=== PATIENT | female | born 1960 | race Two or more races ===

== ENCOUNTER 2018-07-16 05:52 | Emergency (ER) | payer OTHER ==
[2018-07-16] MEDS ORDERED: KETOROLAC TROMETHAMINE 30 MG/1 ML VIAL IM ONE (06:19)
--- NOTE | 2018-07-16 06:30 | PDOC ---
Attending Attestation - Resident Resident Name: VeritoWendie - ED Attending Attestation I have performed the following: I have examined & evaluated the patient, The case was reviewed & discussed with the resident, I agree w/resident's findings & plan, Exceptions are as noted - HPI HPI: 07/16/18 06:25 58 F with h/o sciatica presenting with acute on chronic exacerbation of her lower back pain. Pt reports pain radiating from her lower back down to her R leg. Denies any saddle anesthesia. Denies incontinence. Denies weakness in her legs. Is still ambulatory without assistance. Denies any recent falls. Denies fevers. Denies abdominal pain. Denies leg swelling. No recent travel/ immobilization. Not on exogenous hormones. Denies CP/SOB. - Physicial Exam PE: 07/16/18 06:28 "GENERAL: Awake, alert, and fully oriented, in no acute distress. HEAD: No signs of trauma EYES: PERRLA, EOMI, sclera anicteric, conjunctiva clear ENT: Auricles normal inspection, hearing grossly normal, nares patent, oropharynx clear without exudates. Moist mucosa NECK: Nontender, no stepoffs, Normal ROM, supple, no lymphadenopathy, JVD, or masses LUNGS: Breath sounds equal, clear to auscultation bilaterally. No wheezes, and no crackles HEART: Regular rate and rhythm, normal S1 and S2, no murmurs, rubs or gallops ABDOMEN: Soft, nontender, normoactive bowel sounds. No guarding, no rebound. No masses EXTREMITIES: Normal range of motion, no edema. No clubbing or cyanosis. No cords, erythema, or tenderness NEUROLOGICAL: Cranial nerves II through XII intact. 5/5 strength and sensation in all extremities, Normal speech, normal gait, normal cerebellar function SKIN: Warm, Dry, normal turgor, no rashes or lesions noted. - Medical Decision Making 07/16/18 06:28 58 F with Lower back pain radiating to R leg, consistent with h/o sciatica. Pt with no neuro deficits to suggest cauda equina or cord compression. Pt with no asymmetric swelling to suggest DVT. No DVT risk factors. Equal pulses bilaterally, making vascular pathology unlikely. - Toradol - F/u ortho Pt is well appearing, with normal vitals. Clinically stable for DC at this time. I discussed the physical exam findings, ancillary test results and final diagnoses with the patient. I answered all of the patient's questions. The patient was satisfied with the care received and felt comfortable with the discharge plan and treatment plan. The patient agrees to follow up with the primary care physician within 24-72 hours.
[2018-07-16 06:32] VITALS: BP 170/99; PULSE 92; TEMP 99; BMI 32.5
--- NOTE | 2018-07-16 06:34 | PDOC ---
History of Present Illness - General Chief Complaint: Pain, Acute Stated Complaint: PAIN,RT LEG Time Seen by Provider: 07/16/18 06:04 History Source: Patient, Family (son) Exam Limitations: Language Barrier - History of Present Illness Initial Comments: 07/16/18 06:46 *pt speaks Upper Sorbian. Son helped to translate Pt is a 58yo f with PMH of sciatica, htn presenting to ED with worsening back pain for the past 15 days. Pt says that this pain feels like her sciatica. She has been seeing physical therapy but since it stopped the pain has returned. She had been taking diclofenac for the pain as needed which has helped but she ran out 2 days ago. She is denying weakness, tingling, loss of bowel/bladder, pain in the L leg. Pain is worse when she tries to stand up from sitting down. She has not taken anything for the pain these past couple of days. No injuries or falls. No surgeries in the back. PCP: Renetta PMH: sciatica, htn Meds: enalapril PSH: none Allergies: PCN Social: denies Past History - Past Medical History Allergies/Adverse Reactions: Allergies Allergy/AdvReac Type Severity Reaction Status Date / Time Penicillins Allergy Verified 07/16/18 06:33 Home Medications: Ambulatory Orders Baclofen 10 mg PO TID #15 tablet 07/16/18 Naproxen 500 mg PO BID #14 tablet 07/16/18 Review of Systems - Review of Systems Able to Perform ROS?: Yes Constitutional: No: Chills, Fever, Weakness HEENTM: No: Recent change in vision Respiratory: No: Cough, Shortness of Breath Cardiac (ROS): No: Chest Pain, Lightheadedness, Palpitations, Syncope ABD/GI: No: Constipated, Diarrhea, Nausea, Vomiting, Abdominal cramping : No: Dysuria, Hematuria, Incontinence Musculoskeletal: Yes: Back Pain. No: Joint Pain, Muscle Pain, Muscle Weakness, Neck Pain Neurological: No: Headache, Numbness, Paresthesia, Tingling, Tremors, Weakness, Unsteady Gait, Ataxia, Dizziness *Physical Exam - Physical Exam Comments: 07/16/18 06:51 Pt sitting on bed with son at bedside General Appearance: Yes: Nourished, Appropriately Dressed, Mild Distress, Obese HEENT: positive: EOMI, APRIL, Normal Voice, Pharynx Normal, Hearing Grossly Normal. negative: Pale Conjunctivae, Scleral Icterus (R), Scleral Icterus (L) Neck: positive: Trachea midline, Supple. negative: Lymphadenopathy (R), Lymphadenopathy (L) Respiratory/Chest: positive: Lungs Clear, Normal Breath Sounds. negative: Crackles, Rales, Rhonchi, Stridor, Wheezing Cardiovascular: positive: Regular Rhythm, Regular Rate, S1, S2. negative: Edema , JVD, Murmur Vascular Pulses: Carotid (R): 2+, Carotid (L): 2+, Dorsalis-Pedis (R): 2+, Doralis-Pedis (L): 2+ Gastrointestinal/Abdominal: positive: Normal Bowel Sounds, Soft. negative: Distended, Guarding, Rebound, Tenderness Musculoskeletal: positive: Decreased Range of Motion (in R leg), Other (+SLR in R leg). negative: CVA Tenderness, Muscle Spasm, Vertebral Tenderness Extremity: positive: Normal Capillary Refill, Pelvis Stable. negative: Swelling , Calf Tenderness Integumentary: positive: Normal Color, Dry, Warm. negative: Swelling Neurologic: positive: heel lift gouger II-XII NML intact, Fully Oriented, Alert, Normal Mood/ Affect, Normal Response, Motor Strength 5/5, Sensory Deficit (R leg compared to L leg), Finger to Nose Deep Tendon Reflexes: Ankle (L): 2+, Ankle (R): 2+, Knee (L): 2+, Knee (R): 2+ Medical Decision Making - Medical Decision Making 07/16/18 06:53 58yo f with PMH of htn, sciatica presenting with increasing back pain which feels like sciatica. Vitals: wnl, hypertensive w/o signs of emergency/urgency PE: + SLR in R leg, less sensation in R leg compared to L leg DDx: cauda equina, hematoma, abscess, sciatica Low suspcion for cauda equina given lack of saddle anesthesia, full ROM, able to ambulate. Low suspicion for hematoma and abscess given lack of fever, no recent trauma or surgeries. Higher suspicion for sciatica. Will give pt toradol and reevaluate 07/16/18 07:00 Pt reports feeling better. Agrees with plan to be dc home. PT was told rx for baclofen and naproxyn sent to pharmacy. advised to see pcp. given referral to neuro and ortho. PT understood return precautions. *DC/Admit/Observation/Transfer Diagnosis at time of Disposition: Sciatica Qualifiers: Laterality: right Qualified Code(s): M54.31 - Sciatica, right side - Discharge Dispostion Disposition: HOME Condition at time of disposition: Good Decision to Admit order: No - Prescriptions Prescriptions: Baclofen 10 mg PO TID #15 tablet Naproxen 500 mg PO BID #14 tablet - Referrals Referrals: Evert Jackson [Primary Care Provider] - Yosef Tripp MD [Staff Physician] - Joshua Lopez MD [Staff Physician] - - Patient Instructions Printed Discharge Instructions: DI for Sciatica Additional Instructions: Te vieron aqu hoy por tu dolor de espalda. Es muy probable que la citica. Le recomiendo que consulte a un neurlogo para el tratamiento del dolor causado por la citica. El Dr. Paris est afiliado a [facility]. Puedes loryamarlo al Tambin sugiero dakota a un mdico ortopdico: Dr. Lopez Se le laura dado recetas de naproxeno y ciclobenzaprina. Por favor tome ioana se indica. Est en [facility]. Regrese a la sofía de emergencias si: el dolor empeora, no puede senior care assistant la pierna , pierde la sensibilidad en la pierna, no puede controlar la vejiga o los intestinos o si se presenta algn sntoma nuevo. Suzette You were seen here today for your back pain. It is most likely sciatica. I highly recommend you see a neurologist for further management of pain caused by sciatica. Dr. Paris is affiliated with this hospital. You can call him at I also suggest seeing an orthopedic doctor: Dr. Lopez You have been given prescriptions for naproxen and cyclobenzaprine. Please take as directed. It is at [facility]. Please come back to the emergency room if: pain gets worse, you are unable to move your leg, you lose sensation in your leg, you are unable to control your bladder or bowels or if any new concerning symptom develops. Thank you Print Language: ANGOLAN - Post Discharge Activity
[2018-07-16] MEDS ORDERED: KETOROLAC TROMETHAMINE 30 MG/1 ML VIAL ONE (06:40)
== END 2018-07-16 07:58 | disposition home or self-care (01) ==
LOC: JER 05:52
PROC: 3E0233Z Introduction of Anti-inflammatory into Muscle, Percutaneous Approach (ICD-10-PCS; principal; 2018-07-16)
DX: M54.31 Sciatica, right side (principal)
CPT/HCPCS: 99283-25

== ENCOUNTER 2018-07-19 13:24 | Emergency (ER) | payer OTHER ==
[2018-07-19 13:33] VITALS: TEMP 97; BMI 32.5
--- NOTE | 2018-07-19 14:17 | PDOC ---
History of Present Illness - General Chief Complaint: Pain Stated Complaint: LEG PAIN Time Seen by Provider: 07/19/18 14:15 History Source: Patient Exam Limitations: No Limitations - History of Present Illness Initial Comments: 07/19/18 14:16 CHIEF COMPLAINT: Lower back pain HISTORY OF PRESENT ILLNESS: 58-year-old woman presents emergency Department with right lower back pain shooting down her right leg. She denies any trauma. Patient was seen and evaluated in this emergency Department diagnoses sciatica and is been taking Naprosyn and baclofen which help relieve the pain but the pain returned after approximately 2 hours. Patient denies any urinary retention , incontinence of bladder or bowel, saddle anesthesia, foot drop, IV drug use or history of cancer. REVIEW OF SYSTEMS: GENERAL: Afebrile, denies any weakness RESPIRATORY: No cough, wheezing, or hemoptysis. CARDIAC: No chest pain or shortness of breath MUSCULOSKELETAL: Pain to right lower back. SKIN : No erythema, no bruising, no deformity. GI/: Denies any abdominal pain, no urinary difficulty, incontinence or urinary retention. RECTAL: Denies any difficulty this A.m. NEUROLOGICAL: Denies any numbness or tingling. No neurosensory deficits. PHYSICAL EXAM: GENERAL: The patient is awake, alert, and fully oriented, in no acute distress. RESPIRATORY: Lungs clear bilaterally, no rhonchi wheezes or crackles CARDIAC: S1-S2 audible, no murmur rub or gallop MUSCULOSKELETAL: Pain to right lower back. No tingling or sensory deficit. Less than 2 second cap refill, +2 pedal pulses. GI/: Abdomen soft, nontender, nondistended. No rebound tenderness. No masses palpable. MUSCULOSKELETAL: No spinal point tenderness. Normal reflexive and no deficits to sensation or strength. Point tenderness over the right ischium. RECTAL: Deferred patient with no neurological findings SKIN: Warm, Dry, normal turgor, no erythema, no edema no bruising. Past History - Past Medical History Allergies/Adverse Reactions: Allergies Allergy/AdvReac Type Severity Reaction Status Date / Time Penicillins Allergy Verified 07/19/18 13:31 Home Medications: Ambulatory Orders Baclofen 10 mg PO TID #15 tablet 07/16/18 Naproxen 500 mg PO BID #14 tablet 07/16/18 Enalapril Maleate 5 mg PO DAILY 07/19/18 Methocarbamol [Robaxin -] 1,500 mg PO Q8H PRN #30 tablet 07/19/18 COPD: No HTN: Yes - Suicide/Smoking/Psychosocial Hx Smoking History: Never smoked Have you smoked in the past 12 months: No Hx Alcohol Use: No Drug/Substance Use Hx: No *Physical Exam - Vital Signs Last Vital Signs Temp Pulse Resp BP Pulse Ox 97 F L 103 H 20 179/113 H 99 07/19/18 13:25 07/19/18 13:25 07/19/18 13:25 07/19/18 13:25 07/19/18 13:25 Medical Decision Making - Medical Decision Making 07/19/18 14:27 A/P: 58-year-old woman with lower back pain with right-sided sciatica Ambulatory with limp Pedal pushes even bilaterally 2+ DP and PT pulses bilaterally Point tenderness to right ischium with pain shooting down posterior right lower extremity Patient with elevated blood pressure upon arrival. Patient switched from atenolol to enalapril 7 days ago. ? Blood pressure medication titration needed or pain Patient is a 30 taking Naprosyn 500 mg this morning and baclofen 10 mg. I will add Valium 5 mg and Robaxin 1 g Reassess *DC/Admit/Observation/Transfer Diagnosis at time of Disposition: Sciatica Qualifiers: Laterality: right Qualified Code(s): M54.31 - Sciatica, right side - Discharge Dispostion Disposition: HOME Condition at time of disposition: Stable Decision to Admit order: No - Prescriptions Prescriptions: Methocarbamol [Robaxin -] 1,500 mg PO Q8H PRN #30 tablet PRN Reason: Back Pain - Referrals Referrals: Evert Jackson [Primary Care Provider] - - Patient Instructions Additional Instructions: Rest, no heavy lifting or exercise until pain is resolved Hot soaks to neck and low back as often as possible/hot showers or Jacuzzis No massage or therapy until spasm is gone Continue naproxen as prescribed as needed for pain and swelling Robaxin 1500mg every 8 hours as needed for spasm If not significant improvement within 24 hours with medication and rest regime, followup with private physician for change in medications and /or therapy. - Post Discharge Activity
[2018-07-19] MEDS ORDERED: METHOCARBAMOL 500 MG TABLET PO ONE (14:23)
[2018-07-19] MEDS ORDERED: diazePAM 5 MG TABLET PO ONE (14:23)
[2018-07-19] MEDS ORDERED: diazePAM 5 MG TABLET ONE (14:34)
[2018-07-19] MEDS ORDERED: METHOCARBAMOL 500 MG TABLET ONE (14:34)
[2018-07-19 15:30] VITALS: BP 139/99; PULSE 74
== END 2018-07-19 15:48 | disposition home or self-care (01) ==
LOC: JERFT 13:24 → JER 13:24 → JERFT 15:48
DX: M54.41 Lumbago with sciatica, right side (principal)
CPT/HCPCS: 99281-25

== ENCOUNTER 2022-03-11 09:23 | Emergency (ER) | payer OTHER ==
[2022-03-11 09:43] VITALS: BMI 29.0
[2022-03-11] MEDS ORDERED: CARVEDILOL 25 MG TABLET (FP) PO ONE (10:22)
[2022-03-11] MEDS ORDERED: CARVEDILOL 25 MG TABLET (FP) ONE (11:07)
[2022-03-11 11:15] VITALS: BP 152/84; PULSE 69; TEMP 98.6
[2022-03-11 12:09] LABS: BASO % 0.3 % (0-2.0); EOS % 1.7 % (0-4.5); HEMATOCRIT 36.6 % (32.4-45.2); HEMOGLOBIN 12.7 GM/dL (10.7-15.3); LYMPH % 37.4 % (8-40); MCH 31.2 pg (25.7-33.7); MCHC 34.7 g/dl (32.0-36.0); MEAN CELL VOLUME 89.8 fl (80-96); MEAN PLT VOLUME 9.6 fl (7.5-11.1); MONO % 5.8 % (3.8-10.2); NEUT % 54.8 % (42.8-82.8); PLATELET COUNT 233 10^3/uL (134-434); RBC 4.08 M/mm3 (3.60-5.2); RDW 13.6 % (11.6-15.6); WHITE BLOOD COUNT 5.1 K/mm3 (4.0-10.0)
[2022-03-11 12:30] LABS: CALCIUM 9.8 mg/dL (8.5-10.1)
[2022-03-11 12:31] LABS: ALBUMIN 4.3 g/dl (3.4-5.0); BLOOD UREA NITROGEN 9.5 mg/dL (7-18); MAGNESIUM 2.5 mg/dL (1.8-2.4)
[2022-03-11 12:34] LABS: CREATININE 0.8 mg/dL (0.55-1.3)
[2022-03-11 12:36] LABS: BILIRUBIN,TOTAL 0.7 mg/dL (0.2-1)
== END 2022-03-11 14:35 | disposition home or self-care (01) ==
LOC: JER 09:23
DX: I16.0 Hypertensive urgency (principal)
CPT/HCPCS: 36415; 70450-TC; 80053; 83735; 84484; 85025; 93005; 93010; 99285-25

== ENCOUNTER 2024-05-26 15:34 | Emergency (ER) | payer OTHER ==
[2024-05-26 15:48] VITALS: TEMP 98.4; BMI 26.4
[2024-05-26 16:30] LABS: BASO % 0.5 % (0-2.0); EOS % 1.7 % (0-4.5); HEMATOCRIT 37.1 % (32.4-45.2); HEMOGLOBIN 12.7 GM/dL (10.7-15.3); LYMPH % 34.8 % (8-40); MCH 30.9 pg (25.7-33.7); MCHC 34.3 g/dl (32.0-36.0); MEAN PLT VOLUME 9.3 fl (7.5-11.1); MONO % 4.3 % (3.8-10.2); NEUT % 58.7 % (42.8-82.8); PLATELET COUNT 210 10^3/uL (134-434); RBC 4.12 M/mm3 (3.60-5.2); RDW 13.7 % (11.6-15.6); WHITE BLOOD COUNT 5.4 K/mm3 (4.0-10.0)
[2024-05-26 16:38] LABS: ACTIVATED PTT 39.3 SECONDS (25.2-36.5); INR 0.95 (0.83-1.09); PROTHROMBIN TIME (PATIENT) 10.9 SEC (9.7-13.0)
[2024-05-26 16:47] LABS: ALBUMIN 4.5 g/dl (3.4-5.0); BLOOD UREA NITROGEN 13.8 mg/dL (7-18); MAGNESIUM 2.4 mg/dL (1.8-2.4)
[2024-05-26 16:50] LABS: CREATININE 0.9 mg/dL (0.55-1.3)
[2024-05-26 16:52] LABS: BILIRUBIN,TOTAL 0.6 mg/dL (0.2-1); TOT PROT 8.2 g/dl (6.4-8.2)
[2024-05-26 17:27] VITALS: BP 144/72; PULSE 68; RESP 18
[2024-05-26] MEDS: CARVEDILOL 25 MG TABLET (FP) PO ONE (17:58)
== END 2024-05-26 17:58 | disposition home or self-care (01) ==
LOC: JER 15:34
DX: I10 Essential (primary) hypertension (principal); R51.9 Headache, unspecified
CPT/HCPCS: 36415; 70450-TC; 71045-TC-FY; 80053; 83735; 84443; 84484; 85025; 85610; 85730; 93005; 93010; 99285-25